=== PATIENT | male | born 1995 | race Two or more races ===

== ENCOUNTER 2019-12-29 09:12 | Emergency (ER) | payer SELFPAY ==
[~2019-12-29] VITALS: Ht 167.6 cm; Wt 86.0 kg
[2019-12-29] MEDS ORDERED: DEXAMETHASONE 4 MG TABLET PO ONE (10:00)
[2019-12-29] MEDS ORDERED: IBUPROFEN 200 MG TABLET. PO ONE (10:00)
--- NOTE | 2019-12-29 10:21 | RAD ---
EXAM: CHEST AP ONLY INDICATION: Reason: cough, fever / Spl. Instructions: / History: . TECHNIQUE: Single view COMPARISON: None FINDINGS: The heart size is normal. The great vessels appear unremarkable. There is no hilar or mediastinal mass. Lungs show mild congestion of the central pulmonary vessels with no focal infiltrates. There is no pleural effusion or pneumothorax. There are no significant osseous abnormalities. IMPRESSION: Mild central pulmonary vascular congestion. No parenchymal consolidation of typical bacterial pneumonia noted. Electronically signed by: Liseth Feliz MD (12/29/2019 10:18 AM) [id number]
[2019-12-29] MEDS ORDERED: AZIT250T PO (10:33)
--- NOTE | 2019-12-29 10:33 | PHYS DOC ---
Past Medical History Past Medical History: No Pertinent History Past Surgical History: No Surgical History Smoking Status: Never Smoker Alcohol Use: Occasionally Drug Use: None General Adult EDM: Chief Complaint: FEVER HPI: HPI: 24-year-old male presents with 1 day history of subjective fever and chills with associated cough. Patient reports cough is dry but intermittently will have some sputum. Denies known sick contacts. Denies known exposure to COVID-19. Denies nausea/vomiting/diarrhea. Denies shortness of air. Denies dysuria. Patient reports last took Tylenol yesterday. Review of Systems: Review of Systems: Constitutional: Reports subjective fever and chills Eyes: Denies redness or eye pain HENT: Denies nasal congestion or sore throat Respiratory: Reports cough; denies shortness of breath Cardiovascular: Denies chest pain or palpitations GI: Denies abdominal pain, nausea, or vomiting : Denies dysuria or hematuria Musculoskeletal: Denies back pain or joint pain Integument: Denies rash or skin lesions Neurologic: Denies headache, focal weakness or sensory changes; reports generalized malaise and fatigue Complete systems were reviewed and found to be within normal limits, except as documented in this note. Current Medications: Current Medications Medications (Trade) Dose Ordered Sig/Sandy Start Time Stop Time Status Last Admin Dose Admin Dexamethasone (Decadron) 10 mg 1X ONCE 12/29/19 10:00 12/29/19 10:12 DC Ibuprofen (Motrin) 600 mg 1X ONCE 12/29/19 10:00 12/29/19 10:12 DC Allergies: Allergies: Allergies Coded Allergies Type Severity Reaction Last Updated Verified No Known Drug Allergies 12/29/19 No Physical Exam: PE: Constitutional: Well developed, well nourished, no acute distress, non-toxic appearance HENT: Normocephalic, atraumatic Eyes: Conjunctiva normal, no discharge Neck: Normal range of motion, no tenderness, supple, no meningeal signs Lungs & Thorax: No respiratory distress, equal chest rise and fall Abdomen: Soft, no tenderness Skin: Warm, dry, no erythema, no rash Extremities: No tenderness, ROM intact, no edema Neurologic: Alert and oriented X 3, no focal deficits noted Psychologic: Affect normal, judgment normal Current Patient Data: Vital Signs: Vital Signs Date Time Temp Pulse Resp B/P (MAP) Pulse Ox O2 Delivery O2 Flow Rate FiO2 7/11/20 09:22 100.8 79 23 118/65 (82) 97 Room Air 100.8 EKG: EKG: [] Radiology/Procedures: Radiology/Procedures: PROCEDURE: CHEST AP ONLY EXAM: CHEST AP ONLY INDICATION: Reason: cough, fever / Spl. Instructions: / History: . TECHNIQUE: Single view COMPARISON: None FINDINGS: The heart size is normal. The great vessels appear unremarkable. There is no hilar or mediastinal mass. Lungs show mild congestion of the central pulmonary vessels with no focal infiltrates. There is no pleural effusion or pneumothorax. There are no significant osseous abnormalities. IMPRESSION: Mild central pulmonary vascular congestion. No parenchymal consolidation of typical bacterial pneumonia noted. Electronically signed by: Liseth Feliz MD (12/29/2019 10:18 AM) [id number] Course & Med Decision Making: Course & Med Decision Making Pertinent Labs and Imaging studies reviewed. (See chart for details) Patient presents with HPI and physical exam concerning for possible COVID-19. Sats stable. Fever addressed. Symptomatic dexamethasone provided. Chest x-ray obtained. COVID testing pending. COVID precautions in place including PPE and negative pressure room. Patient stable for discharge with outpatient follow-up with PCP. Empiric azithromycin prescribed. Incentive spirometer with education provided. Discussed findings and plan with patient, who acknowledges understanding and agreement. COVID-19 CRITERIA: The patient was evaluated during the global COVID-19 pandemic, and that diagnosis was suspected/considered upon their initial presentation. Their evaluation, treatment and testing was consistent with current guidelines for patients who present with complaints or symptoms that may be related to COVID-19. Carina Disclaimer: Carina Disclaimer: This electronic medical record was generated, in whole or in part, using a voice recognition dictation system. Departure Departure Impression: Primary Impression: Viral syndrome Additional Impressions: Suspected 2019 novel coronavirus infection Fever Qualified Codes: R50.9 - Fever, unspecified Disposition: 01 HOME, SELF-CARE Condition: STABLE Referrals: NO PCP (PCP) Patient Instructions: Fever, Adult, [id number], Incentive Spirometer, Viral Syndrome Additional Instructions: Definicin Se le realiz la prueba de deteccin del COVID-19 o se le diagnostic dicha enfermedad. Es catia infeccin ocasionada por un nuevo tipo de coronavirus. En la mayora de los casos, el COVID-19 provoca sntomas similares a los del resfriado. En algunas personas, puede ocasionar sntomas ms graves, parth problemas respiratorios. No existe un tratamiento para el virus COVID-19. El cuerpo elimina la infeccin con el tiempo. El cuidado personal ayuda a aliviar el malestar. Pasos que debe seguir 1. Cuidados personales Descanse cuando sea necesario. Los hbitos saludables pueden ayudarlo a sentirse mejor. Algunas medidas para lograr cambios incluyen lo siguiente: - Elija alimentos saludables, parth frutas y verduras. Nicole abundante cantidad de agua briana todo el da. - Duerma kris por la noche. - Si fuma, intente no hacerlo. [place] ayudar a mejorar la respiracin. - Evite el alcohol. 2. Mantenga sanos a los dems El virus puede contagiarse a otras personas. Cada vez que estornuda o tose, se liberan gotitas. Las gotitas pueden entrar en la boca, la nariz o los ojos de las personas que se encuentran cerca de usted y ocasionar la infeccin. Para reducir las probabilidades de contagiar el virus COVID-19 a otros, tenga en cuenta lo siguiente: - Qudese en casa el tiempo que el mdico se lo indique. Es posible que deba quedarse en casa hasta que la enfermedad desaparezca. Salga nicamente para recibir atencin mdica o en donte de urgencia. - Evite las reas pblicas, los eventos o el transporte pblico. No reanude las actividades laborales o escolares hasta que el mdico lo autorice. - Llame previamente si necesita asistir a un centro mdico. Avise que es posible que haya contrado COVID-19. [place] ayudar a que le indiquen adonde debe dirigirse. Erich pueden pedirle que use catia mscara facial cuando vaya al consultorio. Si llama a los servicios de asistencia mdica de urgencias, avseles que es posible que haya contrado COVID-19. Mientras est en casa: - Evite el contacto directo con otras personas. Mantngase a catia distancia aproximada de 2 metros. Si es posible, pasen la mayor parte del tiempo en hussein separadas. - Use catia mscara facial si estar en contacto directo con otras personas, por ejemplo, si compartir catia habitacin o un vehculo. - Pida a alguien que limpie las superficies comunes de la casa. Limpie picaportes, mesadas y lavamanos con limpiadores domsticos todos los encinas. - Al toser o estornudar, cbrase con un pauelo de papel. Despus de usarlo, deschelo de inmediato. Si no tiene un pauelo de papel, tosa o estornude en el pliegue del codo. - Lvese las aixa con frecuencia. Lvese las aixa despus de estornudar o toser. Lvese con agua y jabn briana, al menos, 20 segundos. Si no dispone de agua y jabn, use un limpiador de aixa a base de alcohol. - No cocine para otros. Evite compartir objetos personales, parth tenedores, cucharas o cepillos de dientes. - Mientras est enfermo, evite el contacto directo con las mascotas. No hay indicios de si el virus se transmite a las mascotas. Esta es catia medida de seguridad que debe tenerse en cuenta hasta que se sepa ms acerca de isidro virus. El aislamiento puede ser frustrante. La interaccin social puede ayudar. Mantngase en contacto con amigos y familiares por telfono u otros medios tecnolgicos. Puede interactuar con otras personas en el hogar, dayo mantenga catia distancia thomas de aproximadamente 2 metros. Seguimiento Las pruebas para confirmar la presencia del COVID-19 pueden demorar algunos encinas. Es posible que deba seguir los pasos mencionados anteriormente hasta que estn los resultados de las pruebas. Lo llamarn del consultorio mdico para saber si hernandez habido algn cambio en sandoval marcos. Tambin le avisarn cuando pueda volver a estar cerca de otras personas. Problemas a los que debe estar atento Comunquese con el mdico si no se recupera segn lo previsto o si tiene problemas parth los siguientes: - Dificultad para respirar - Dolor de pecho - Empeoramiento de los sntomas Si dar que tiene catia urgencia, llame a los servicios de asistencia mdica de urgencias de inmediato. As taken from [facility] Azithromycin (ZITHROMAX) 250 Mg Tablet 1 PKG PO UD for bronchitis, #6 TAB Take 2 tablets on day 1 and then 1 tablet each day for the next 4 days as directed Prov: ARPITA VALVERDE DO 12/29/19 Justicifation of Admission Dx: Justifications for Admission: Justification of Admission Dx: N/A COVID-19 Assessment: COVID-19 Patient Risks: Age 65 or older: No Sign of co-morbidity: No Exp to person + for COVID: No Exp to PUI: No Travel from affected area: No Lower respiratory symptoms: Yes Fever: Yes Other: No PPE Use: Full PPE with N95 mask or PAPR: Yes ARPITA VALVERDE DO Dec 29, 2019 10:33
[2019-12-29 10:42] VITALS: BP 118/62
== END 2019-12-29 11:00 | disposition home or self-care (01) ==
LOC: ER 09:12 → EDBD 09:12 → ER 11:00
DX: B34.9 Viral infection, unspecified (principal); U07.1 COVID-19; R50.9 Fever, unspecified
CPT/HCPCS: 71045; 99284; U0003